=== PATIENT | male | born 1980 | race Hispanic/Latino ===

== ENCOUNTER 2019-01-08 21:29 | Observation (INO) | payer BC ==
[2019-01-08 21:36] VITALS: RESP 16
[2019-01-08] MEDS ORDERED: Vancomycin 1 g Inj ONE (21:48)
[2019-01-08 22:20] LABS: BASO % 0.8 % (0.0-2.0); EOS # 0.3 K/uL (0.0-0.7); EOS % 4.5 % (0.0-4.0); HEMOGLOBIN 14.4 g/dL (12.0-18.0); LYMPH # 2.6 K/uL (1.0-4.3); LYMPH % 44.3 % (20.0-40.0); MEAN CELL VOLUME 92.1 fl (80.0-94.0); MEAN CORPUSCULAR HEMOGLOBIN 31.3 pg (27.0-31.0); MONO # 0.4 K/uL (0.0-0.8); MONO % 6.7 % (0.0-10.0); NEUT # 2.6 K/uL (1.8-7.0); NEUT % 43.7 % (50.0-75.0); NRBC % 0.1 % (0.0-0.0); RBC 4.6 Mil/uL (4.40-5.90); RED CELL DISTRIBUTION WIDTH 13.5 % (11.5-14.5); WHITE BLOOD COUNT 5.9 K/uL (4.8-10.8)
--- NOTE | 2019-01-08 22:33 | ED PDOC ---
Upper Extremity Pain/Injury Time Seen by Provider: 01/08/19 21:35 Chief Complaint (Nursing): Upper Extremity Problem/Injury Chief Complaint (Provider): Upper Extremity Problem/Injury History Per: Patient History/Exam Limitations: no limitations Current Symptoms Are (Timing): Still Present Additional Complaint(s): Patient is a 38 year old Caucasion male patient with a past medical history of l eft knee arthroscopy, who presents to the emergency department complaining of right arm redness. Patient states that on Sunday, he cut his right 2nd digit tip and went to local urgent care facility. Patient received sutures there and got a prescription of keflex. Patient admits to not taking medication and states his [id number] is a doctor here, who instructed him to take clindamycin, which he also did not take. Patient states that today, he noticed red streaking to his arm and a lump under his armpit. He further states he is unable to extend his arm but denies having any fever or chills. He saw Dr. Laci Doll, who referred him to the ED. PMD: in ID Past Medical History Reviewed: Historical Data, Nursing Documentation, Vital Signs Vital Signs: Last Vital Signs Temp 97.3 F L 01/08/19 21:30 Pulse 61 01/08/19 21:30 Resp 16 01/08/19 21:30 BP 140/91 H 01/08/19 21:30 Pulse Ox 99 01/08/19 21:30 - Medical History PMH: No Chronic Diseases - Surgical History Other surgeries: Left knee arthroscopy - Family History Family History: States: Unknown Family Hx - Social History Alcohol: Occasional - Allergies Allergies/Adverse Reactions: Allergies Allergy/AdvReac Type Severity Reaction Status Date / Time No Known Allergies Allergy Verified 01/08/19 21:30 Review of Systems ROS Statement: Except As Marked, All Systems Reviewed And Found Negative Constitutional: Negative for: Fever, Chills Musculoskeletal: Positive for: Other (lump under right armpit ) Skin: Positive for: Rash (right arm red streaking ) Physical Exam - Reviewed Nursing Documentation Reviewed: Yes Vital Signs Reviewed: Yes - Physical Exam Appears: Positive for: Non-toxic, No Acute Distress Head Exam: Positive for: ATRAUMATIC, NORMOCEPHALIC Skin: Positive for: Warm (normal temperature at extremity) Pulses-Radial (L): 2+ Pulses-Radial (R): 2+ Extremity: Positive for: Capillary Refill (less than 2 seconds), Other (Right arm: sutures clean, dry and intact to the right 2nd digit on the distal portion; (-) focal purulence, erythema, or drainage// Over bicep surface there is red streaks 7 centimeters) Lymphatic: Positive for: Adenopathy (axillary on the right) - Laboratory Results Result Diagrams: 01/08/19 22:10 01/08/19 22:10 - ECG O2 Sat by Pulse Oximetry: 99 (RA) Pulse Ox Interpretation: Normal Medical Decision Making Medical Decision Making: Time: 2209 Impression: 38 year old male presenting with acute lymphadenitis, in setting of digit injury, labs and vancomycin ordered. Plan: --CMP --Lact acid --CBC with differential --ESR --Vancomycin --Blood culture --Saline lock 23:30 Labs reviewed no clinically significant abnormalities. Patient case discussed with Dr. Doll. Patient is to be place don observation status for additional IV antibiotics. Diagnosis is lymphangitis of right upper extremity. - Scribe Attestation: Documented by Sebastián Varela, acting as a scribe for Gonzalo Noguera MD. Provider Scribe Attestation: All medical record entries made by the Scribe were at my direction and personally dictated by me. I have reviewed the chart and agree that the record accurately reflects my personal performance of the history, physical exam, medical decision making, and the department course for this patient. I have also personally directed, reviewed, and agree with the discharge instructions and disposition. Disposition - Clinical Impression Clinical Impression: Acute lymphangitis of right upper extremity - Patient ED Disposition Is Patient to be Admitted: Yes Discussed With DrAshley: Laci Doll - Disposition Disposition Time: 23:30 Condition: FAIR - Pt Status Changed To: Hospital Disposition Of: Observation
[2019-01-08 22:50] LABS: ALB/GLOB RATIO 1.6 (1.0-2.1); ALBUMIN 4.8 g/dL (3.5-5.0); BLOOD UREA NITROGEN 28 mg/dl (9-20); CALCIUM 9.7 mg/dL (8.4-10.2); GFR NON-AFRICAN AMERICAN > 60
[2019-01-08 22:59] LABS: ALT/SGPT 40 U/L (21-72); AST/SGOT 44 U/L (17-59)
[2019-01-08] MEDS ORDERED: cefTRIAXone 2 GM in Sodium Chloride 0.9% 100 ML IVPB STA (23:13)
[2019-01-08] MEDS ORDERED: cefTRIAXone (Rocephin) 1 gm Inj ONE (23:56)
[2019-01-09] MEDS ORDERED: cefTRIAXone (Rocephin) 1 gm Inj ONE (00:27)
[2019-01-09] MEDS ORDERED: Vancomycin 1 g Inj ONE (06:04)
[2019-01-09 07:42] VITALS: BP 124/85; PULSE 67; TEMP 98.7; O2SAT 100
== END 2019-01-09 07:42 | disposition home or self-care (01) ==
LOC: H.ER 21:29 → H.ERHOLD 23:14
PROVIDERS: ADMIT Specialist; ATTEND Specialist
DX: L03.021 Acute lymphangitis of right finger (principal)
CPT/HCPCS: 80053; 83605; 85025; 85651; 87040; 96374; 96375; 96376; 99284; G0378; J0696